=== PATIENT | male | born 1960 | race Caucasian/White ===

== ENCOUNTER 2024-06-08 16:24 | Emergency (ER) | payer OTHER ==
[2024-06-08 17:34] LABS: BASOPHILS PERCENT AUTO 0.1 % (0.0-1.0); EOSINOPHILS PERCENT AUTO 0.2 % (0.0-6.0); HEMATOCRIT 44.6 % (42.0-52.0); HEMOGLOBIN 15.2 gm/dl (14.0-18.0); IMMATURE GRAN ABSOLUTE AUTO 0.05 K/mm3 (0.00-0.05); IMMATURE GRAN PERCENT AUTO 0.3 % (0.0-0.4); LYMPHOCYTES ABSOLUTE AUTO 0.6 K/mm3 (1.0-4.8); LYMPHOCYTES PERCENT AUTO 3.3 % (24.0-44.0); MEAN CORPUSCULAR HEMOGLOBIN 31.3 pg (28.0-32.0); MEAN CORPUSCULAR HGB CONC 34.1 g/dl (32.0-36.0); MEAN PLATELET VOLUME 10.8 fl (9.4-12.4); MONOCYTES ABSOLUTE AUTO 1.2 K/mm3 (0.0-0.8); MONOCYTES PERCENT AUTO 6.6 % (0.0-8.0); NEUTROPHILS ABSOLUTE AUTO 16.2 K/mm3 (1.8-7.7); NEUTROPHILS PERCENT AUTO 89.5 % (41.0-71.0); PLATELET COUNT,PLT 224 K/mm3 (150-400); RED BLOOD CELL COUNT 4.85 M/mm3 (4.52-5.90); WHITE BLOOD CELL COUNT,WBC 18.07 K/mm3 (3.9-11.3)
[2024-06-08 18:24] LABS: A/G RATIO 1.2 (1-2); ALBUMIN 3.9 g/dl (3.4-5.0); ANION GAP 12.1 (5-15); BILIRUBIN TOTAL 0.4 mg/dL (0.2-1.0); BUN/CREATININE RATIO 19.2 (14-18); C-REACTIVE PROTEIN 0.2 mg/dL (<0.30); CALCIUM 9.2 mg/dL (8.5-10.1); CREATININE 1.2 mg/dL (0.7-1.3); EST CRCL DRUG DOSING (CG) 67.98 mL/min; POTASSIUM,K 4.1 mEq/L (3.5-5.1); PROTEIN TOTAL,TP 7.3 g/dl (6.4-8.2)
[2024-06-08 18:25] LABS: LACTIC ACID 2.1 mmol/L (0.4-2.0)
[2024-06-08] MEDS ORDERED: Iopamidol 612 MG/ML 100 ML Bottle IVPUSH ONE (18:39)
[2024-06-08 18:58] LABS: BILIRUBIN,URINE NEGATIVE (Negative); COLOR,URINE YELLOW (Yellow); GLUCOSE,URINE NEGATIVE (Negative); KETONES,URINE 2+ (Negative); LEUKOCYTE ESTERASE,URINE NEGATIVE (Negative); NITRITE,URINE POSITIVE (Negative); OCCULT BLOOD,URINE 3+ (Negative); PH,URINE 6.5 (5.0-8.0); PROTEIN,URINE TRACE (Negative); UROBILINOGEN,URINE 0.2 (0.2-1.0)
[2024-06-08 19:07] LABS: APPEARANCE,URINE SLT CLOUDY (Clear); BACTERIA,URINE MODERATE /hpf (FEW); RBC,URINE >100 /hpf (0-5); SQUAMOUS EPITHELIAL CELLS,UR 0-5 /hpf (0-5); WBC,URINE 0-5 /hpf (0-5)
[2024-06-08 19:08] LABS: AMORPHOUS SEDIMENT,URINE FEW /hpf (NOT SEEN); MUCUS,URINE FEW /hpf (FEW)
[2024-06-08] MEDS: Sodium Chloride 0.9% 1,000 ML IV ONE (19:16)
[2024-06-08] MEDS: cefTRIAXone 2 GM in Sodium Chloride 0.9% 100 ML IV ONE (19:16)
[2024-06-08] MEDS ORDERED: Naloxone 0.4 MG/ML SDV IVPUSH PRN ×2 (19:21→19:57)
[2024-06-08] MEDS: fentaNYL 100 MCG/2 ML SDV IVPUSH ONE ×2 (19:36→20:08)
[2024-06-08] MEDS: Ondansetron 4 MG/2 ML SDV IVPUSH ONE (19:37)
[2024-06-08] MEDS: Sodium Chloride 0.9% 1,000 ML IV SCH (20:42)
[2024-06-08] MEDS: Ketorolac 30 MG/ML SDV IVPUSH ONE (20:42)
== END 2024-06-08 21:30 ==
LOC: JD.ED 16:24
DX: A41.9 Sepsis, unspecified organism (principal); N20.1 Calculus of ureter; N13.9 Obstructive and reflux uropathy, unspecified; D72.825 Bandemia; Z86.16 Personal history of COVID-19; Z79.899 Other long term (current) drug therapy
CPT/HCPCS: 36415; 74177; 80053; 81001; 83605; 83690; 85025; 86140; 87040; 87086; 96361; 96365; 96375; 99285; J0696; J1885; J2405; J3010; J3490; J7030